=== PATIENT | male | born 1960 | race Two or more races ===

== ENCOUNTER 2019-03-26 14:30 | Outpatient (CLI) | payer MEDICAID ==
[~2019-03-26] VITALS: Ht 160 cm; Wt 77.1 kg
[2019-03-26 14:36] VITALS: BP 110/68
[2019-03-26] MEDS ORDERED: ATORVASTATIN CA40 MG ORAL (15:48)
[2019-03-26] MEDS ORDERED: METFORMIN HCL1000 M1 ORAL (15:48)
[2019-03-26] MEDS ORDERED: GLIPIZIDE5 MG ORAL (15:48)
--- NOTE | 2019-03-27 03:45 | Consultation ---
DATE OF CONSULTATION: 03/26/2019 CHIEF COMPLAINT: Chronic GERD. Need for screening colonoscopy. HISTORY OF PRESENT ILLNESS: The patient is a very pleasant 58-year-old female, who was referred to us for screening colonoscopy evaluation. Also, the patient complained of chronic GERD, not responding to [id number] PPI. PAST MEDICAL HISTORY: 1. Nasal polyps. 2. Diabetes. PAST SURGICAL HISTORY: Left knee surgery. MEDICATIONS: Metformin, glipizide, atorvastatin. FAMILY HISTORY: Noncontributory for GI malignancy. SOCIAL HISTORY: The patient denies any tobacco, alcohol, or drug abuse. ALLERGIES: No known drug allergies. REVIEW OF SYSTEMS: A 10-point review of systems was performed and positive for GERD, otherwise negative. PHYSICAL EXAMINATION: VITAL SIGNS: Temperature 97.8, blood pressure is 110/68, pulse 90, respirations 20. HEENT: Normocephalic and atraumatic. Scleral anicteric. NECK: Supple. No evidence of obvious lymphadenopathy. CARDIOVASCULAR: Regular rate and rhythm. Plus S1 and S2. LUNGS: Decreased breath sounds bilaterally based on the supine exam. ABDOMEN: Soft and nontender. No rebound. No guarding. No peritoneal sign. EXTREMITIES: No cyanosis. No clubbing. No edema. ASSESSMENT AND PLAN: The patient is a 58-year-old female with chronic GERD, need for screening colonoscopy. Plan to do endoscopy and colonoscopy. The patient was given instruction for colonoscopy. Risks and benefits of procedure was explained to her and the prep, she agreed, pending authorization for these procedures. Max Giordano M.D. DR: Mei JOB#: [id number] CC:
== END 2019-03-26 15:45 | disposition home or self-care (01) ==
LOC: PAN 14:30
DX: K21.9 Gastro-esophageal reflux disease without esophagitis (principal); E11.9 Type 2 diabetes mellitus without complications; Z79.899 Other long term (current) drug therapy; Z79.84 Long term (current) use of oral hypoglycemic drugs